=== PATIENT | female | born 1925 | race Caucasian/White ===

== ENCOUNTER 2016-05-22 18:15 | Observation (INO) | payer MEDICARE, OTHER ==
[~2016-05-22] VITALS: Ht 162.6 cm; Wt 50.0 kg
--- NOTE | 2016-05-22 01:05 | NUR ---
ADMIT ASSESSMENT COMPLETED. 1ST UNIT PRBC'S STARTED AT THIS TIME. VSS. WILL MONITOR. VISITOR AT BEDSIDE. SIDE RAILS X 2. BED LOW. BED ALARM ON. CALL LIGHT IN REACH.
[~2016-05-22 18:15] MED LIST: ALTACE5 MG PO; CALCIUM 600+D T1 TA1 PO; DULCOLAX10 MG/SUPP RC; FOSAMAX PLUS D1 TA1 PO; HYDRALAZINE HCL10 MG PO; HYDROCODONE-APA1 TAB PO; LOVENOX40 MG/0.4 SC; LOVENOX40 MG/0.4 SQ; MIRALAX17 GM PO; MULTI-DAY VITAM1 TAB PO; NORCO 10/325 TA1 TA1 PO; NORVASC2.5 MG PO; ONDANSETRON4 MG/2 M3 IV; OSTEO BI-FLEX1 EAC1 PO; PERCOCET 10/3251 TA1 PO; PRAVACHOL40 MG PO; PROTONIX 40 MG40 MG IV; PROTONIX40 MG PO; ROCEPHIN 1 GM/D51 G1 IV; SENOKOT-S TABLE1 TAB PO; TOPROL XL100 MG PO; TOPROL XL50 MG PO; VESICARE5 MG PO; ZOFRAN4 MG PO
[2016-05-22 19:03] LABS: BASOPHILS 1.3 % (0.0-2.0); HEMATOCRIT 25.8 % (36.0-48.0); HEMOGLOBIN 8.1 g/dL (12-16); IMMATURE GRANULOCYTES 1.3 % (0-5); MCH 27.6 pg (26.0-34.0); MCHC 31.4 g/dL (31.0-37.0); MCV 88.1 fL (80.0-100.0); MEAN PLATELET VOLUME 8.3 fL (7.4-10.4); MONOCYTES 14.9 % (2-11); NEUTROPHILS 55.5 % (40-80); PLATELET COUNT 516 10x3/uL (130-400); RBC 2.93 10x6/uL (4.00-5.40); RDW 16.5 % (11.5-14.5); WBC 9.4 10x3/uL (4.8-10.8)
[2016-05-22 19:33] LABS: ALBUMIN 3.3 g/dL (3.4-5.0); ALKALINE PHOSPHATASE 137 U/L (46-116); ALT (SGPT) 26 U/L (10-68); BILIRUBIN - TOTAL 0.41 mg/dL (0.2-1.3); CALC OSMOLALITY 272 mosm/kg (275-300); CALCIUM 8.7 mg/dL (8.5-10.1); CARBON DIOXIDE 27.3 mmol/L (21.0-32.0); CHLORIDE - SERUM 101 mmol/L (98-107); CREATININE - SERUM 0.7 mg/dL (0.6-1.3); GLUCOSE 107 mg/dL (74-106); POTASSIUM - SERUM 4.6 mmol/L (3.5-5.1); PROTEIN - SERUM 6.7 g/dL (6.4-8.2); SODIUM 136 mmol/L (136-145); UREA NITROGEN 16 mg/dL (7-18); eGFR NON AFRICAN AMERICAN 83 mL/min (90-120)
--- NOTE | 2016-05-22 23:13 | NUR ---
RECIEVED PT TO FLOOR FROM ED VIA STRETCHER. ALERT AND ORIENTED AND ABLE TO VERBALIZE NEEDS. VSS. IV IS PATENT AND SALINE LOC AT THIS TIME. DRESSING TO RIGHT HIP C/D/I. PT STATES PAIN IS 8/10. PT ASSISTED TO BEDSIDE COMMODE WITH ASSIST. NO NEEDS ARE VERBALIZED AT THIS TIME. VISITOR IS AT BEDSIDE. WILL CONTINUE TO MONITOR. SIDE RAILS ARE UP X 2. BED IS IN LOWEST POSITION. BED ALARM TURNED ON FOR SAFETY. CALL LIGHT IS WITHIN REACH.
[2016-05-23] VITALS (10 sets, daily range): BP systolic 126–168; BP diastolic 63–79; Ht 162.6 cm; Wt 50.0 kg
--- NOTE | 2016-05-23 01:20 | NUR ---
PT WITHOUT REACTION TO BLLOD AT THIS TIME. VSS. WILL MONITOR. SIDE RAILS X 2. BED LOW. BED ALARM ON. CALL LIGHT IN REACH.
--- NOTE | 2016-05-23 04:15 | NUR ---
1ST UNIT PRBC'S FINISHED. PT REMAIN W/O REACTION. WILL MONITOR. SIDE RAILS X 2. BED LOW. BED ALARM. CALL LIGHT IN REACH.
[2016-05-23] MEDS ORDERED: NORVASC5 MG PO (04:30)
[2016-05-23] MEDS ORDERED: ATIVAN0.5 MG PO (04:31)
[2016-05-23] MEDS ORDERED: ASPIRIN81 MG PO (04:31)
[2016-05-23] MEDS ORDERED: CALCIUM 600+D T1 TA1 PO (04:32)
[2016-05-23] MEDS ORDERED: FERROUS SULFAT325 MG PO (04:33)
[2016-05-23] MEDS ORDERED: HYDRALAZINE HCL10 MG PO (04:34)
[2016-05-23] MEDS ORDERED: ALENDRONATE SOD70 MG PO (04:34)
[2016-05-23] MEDS ORDERED: TOPROL XL100 MG PO (04:35)
[2016-05-23] MEDS ORDERED: MIRALAX17 GM PO (04:35)
[2016-05-23] MEDS ORDERED: NORCO 7.5/325 T1 TA1 PO (04:36)
[2016-05-23] MEDS ORDERED: VIC-FORTE CAPSUL1 MG PO (04:36)
[2016-05-23] MEDS ORDERED: OMEPRAZOLE20 M1 PO (04:37)
[2016-05-23] MEDS ORDERED: OXYBUTYNIN CHLOR5 MG PO (04:38)
[2016-05-23] MEDS ORDERED: PRAVACHOL40 MG PO (04:38)
[2016-05-23] MEDS ORDERED: ALTACE5 MG PO (04:39)
[2016-05-23] MEDS ORDERED: NATURAL SENNA8.6 MG PO (04:39)
[2016-05-23] MEDS ORDERED: ACETAMINOPHEN325 MG PO (04:40)
[2016-05-23] MEDS ORDERED: ASCORBIC ACID500 MG PO (04:41)
[2016-05-23] MEDS ORDERED: VITAMIN D10000 UNI1 PO (04:42)
[2016-05-23] MEDS ORDERED: ZANAFLEX4 MG PO (04:42)
--- NOTE | 2016-05-23 06:05 | NUR ---
2ND UNIT PRBC'S STARTED AT THIS TIME. WILL MONITOR. SIDE RAILS X 2. BED LOW. BED ALARM ON. CALL LIGHT IN REACH.
--- NOTE | 2016-05-23 06:20 | NUR ---
PT W/O REACTION TO BLOOD. VSS. WILL MONITOR. SIDE RAILS X 2. BED LOW. BED ALARM ON. CALL LIGHT IN REACH.
--- NOTE | 2016-05-23 07:15 | NUR ---
AWAKE ALERT COLOR ADQ SKIN WARM AND DRY RESP EVEN AND UNLABORED AT PRESENT IN TO RT HIP AT PRESENT FAMILY AT BEDSIDE.
--- NOTE | 2016-05-23 09:30 | NUR ---
BLOOD COMPLETED AT PRESENT TUBING FLUSHED WITH N/S AT PRESENT FAMILY AT BEDSIDE.
--- NOTE | 2016-05-23 11:57 | NUR ---
IV DCD CATH INTACT SITE CLEAN AND DRY WITHOUT REDDNESS OR EDEMA NOTED AT PRESENT.FAMILY AT BEDSIDE AT PRESENT.
--- NOTE | 2016-05-23 13:22 | NUR ---
REPORT CALLED TO VANNESSA THOMPSON.
== END 2016-05-23 14:26 ==
LOC: D.ER 18:15 → OBSVTIME 21:51 → D.MS 21:51
PROVIDERS: Emergency Medicine; ADMIT Family Medicine Adult Medicine
DX: D62 Acute posthemorrhagic anemia (principal); R53.1 Weakness; I10 Essential (primary) hypertension; Z96.641 Presence of right artificial hip joint; E78.5 Hyperlipidemia, unspecified; M19.90 Unspecified osteoarthritis, unspecified site; M81.0 Age-related osteoporosis without current pathological fracture